=== PATIENT | female | born 1975 | race Caucasian/White ===

== ENCOUNTER 2018-12-02 22:40 | Emergency (ER) | payer BC ==
[2018-12-02] MEDS ORDERED: Sodium Chloride 0.9% 1,000 ML IV ONE (22:56)
[2018-12-02] MEDS ORDERED: fentaNYL 100 MCG/2 ML SDV IVPUSH ONE (23:22)
[2018-12-02] MEDS ORDERED: Ondansetron 4 MG/2 ML SDV IV ONE (23:24)
[2018-12-02] MEDS ORDERED: Iopamidol 612 MG/ML 100 ML Bottle IVPUSH ONE (23:29)
[2018-12-02 23:36] LABS: CHLORIDE,CL 101 mmol/L (101-111); SODIUM,NA 141 mmol/L (135-145)
--- NOTE | 2018-12-02 23:40 | EDM.PDOC ---
"ED HPI GENERAL MEDICAL PROBLEM - General Chief Complaint: Abdominal Pain Stated Complaint: PAIN IN STOMACH Time Seen by Provider: 12/02/18 22:45 Source of Information: Reports: Patient History Limitations: Reports: No Limitations - History of Present Illness INITIAL COMMENTS - FREE TEXT/NARRATIVE: mid abdominal pain 1100 radiating to RLQ tonight 8/10 no nausea or vomiting. Chills no fever, Last BM 5pm. Last ate 6pm. Upper Abdomen Pain Score (Numeric/FACES): 8 - Related Data Allergies Allergy/AdvReac Type Severity Reaction Status Date / Time bupropion [From Wellbutrin] Allergy Hives Verified 12/02/18 23:17 meperidine [From Demerol] Allergy Nausea and Verified 12/02/18 23:25 Vomiting Home Meds: Home Meds Ibuprofen 200 mg PO Q6HR PRN 08/16/18 [History] Lactobacillus Acidophilus [Probiotic] 1 cap PO DAILY 08/16/18 [History] Metoprolol Tartrate [Lopressor] 50 mg PO BID 08/16/18 [History] Multivitamin [Multi-Vitamin Daily] 1 tab PO DAILY 08/16/18 [History] Potassium Chloride 10 meq PO TID 08/16/18 [History] Rosuvastatin [Crestor] 5 mg PO ASDIRECTED 08/16/18 [History] amLODIPine Besylate [Amlodipine Besylate] 5 mg PO DAILY 08/16/18 [History] hydroCHLOROthiazide [Hydrochlorothiazide] 25 mg PO DAILY 08/16/18 [History] Past Medical History Cardiovascular History: Reports: Hypertension 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 ED EXAM, GI/ABD - Physical Exam Exam: See Below Exam Limited By: No Limitations General Appearance: Alert, Mild Distress Eyes: Bilateral: EOMI Ears: Normal External Exam Nose: Normal Inspection Throat/Mouth: Normal Inspection Head: Atraumatic, Normocephalic Neck: Normal Inspection Respiratory/Chest: No Respiratory Distress, Lungs Clear, Normal Breath Sounds Cardiovascular: Normal Peripheral Pulses, Regular Rate, Rhythm GI/Abdominal Exam: Normal Bowel Sounds, Soft, Guarding, Tender (RLQ). No: Distended, Rigid, Rebound (Female) Exam: Deferred Back Exam: Full Range of Motion Extremities: Normal Range of Motion Neurological: Alert, Oriented, Normal Cognition Psychiatric: Normal Affect Skin Exam: Warm, Dry, Normal Color Course - Vital Signs Last Recorded V/S: Last Vital Signs Temp 97.7 F 12/03/18 00:31 Pulse 72 12/03/18 00:31 Resp 18 12/03/18 00:31 BP 113/78 12/03/18 00:31 Pulse Ox 97 12/03/18 00:31 - Orders/Labs/Meds Labs: Laboratory Tests 12/02/18 12/02/18 12/02/18 Range/Units 22:53 22:53 22:53 WBC (5.0-10.0) 10^3/uL RBC (4.2-5.4) 10^6/uL Hgb (12.0-16.0) g/dL Hct (37.0-47.0) % MCV (80-100) fL MCH (27.0-34.0) pg MCHC (33.0-35.0) g/dL Plt Count (150-450) 10^3/uL Neut % (Auto) (42.2-75.2) % Lymph % (Auto) (20.5-50.1) % [place] % (Auto) (2-8) % Eos % (Auto) (1.0-3.0) % Baso % (Auto) (0.0-1.0) % Sodium (135-145) mmol/L Potassium (3.6-5.0) mmol/L Chloride (101-111) mmol/L Carbon Dioxide (21.0-31.0) mmol/L Anion Gap BUN (7-18) mg/dL Creatinine (0.6-1.3) mg/dL Est Cr Clr Drug Dosing mL/min Estimated GFR (MDRD) BUN/Creatinine Ratio Glucose (74-105) mg/dL Lactic Acid (0.5-2.2) mmol/L Calcium (8.4-10.2) mg/dl Total Bilirubin (0.2-1.0) mg/dL AST (10-42) IU/L ALT (10-60) IU/L Alkaline Phosphatase (42-121) IU/L Total Protein (6.7-8.2) g/dl Albumin (3.2-5.5) g/dl Globulin Albumin/Globulin Ratio Urine Color Yellow (YELLOW) Urine Appearance Slightly cloudy (CLEAR) Urine pH 6.0 (5.0-9.0) Ur Specific [place] 1.010 (1.005-1.030) Urine Protein Negative (NEGATIVE) Urine Glucose (UA) Negative (NEGATIVE) Urine Ketones 15 H (NEGATIVE) Urine Occult Blood Small H (NEGATIVE) Urine Nitrite Negative (NEGATIVE) Urine Bilirubin Negative (NEGATIVE) Urine Urobilinogen 0.2 (0.2-1.0) mg/dL Ur Leukocyte Esterase Negative (NEGATIVE) Urine RBC 0-5 /HPF Urine WBC 0-5 (0-5/HPF) /HPF Ur Epithelial Cells Moderate H (NOT SEEN) /HPF Urine Bacteria Moderate H (0-FEW/HPF) /HPF Urine HCG, Qual Negative Urine Opiates Screen Negative (NEGATIVE) Ur Oxycodone Screen Negative (NEGATIVE) Urine Methadone Screen Negative (NEGATIVE) Ur Barbiturates Screen Negative (NEGATIVE) U Tricyclic Antidepress Negative (NEGATIVE) Ur Phencyclidine Scrn Negative (NEGATIVE) Ur Amphetamine Screen Negative (NEGATIVE) U Methamphetamines Scrn Negative (NEGATIVE) Urine MDMA Screen Negative (NEGATIVE) U Benzodiazepines Scrn Negative (NEGATIVE) Urine Cocaine Screen Negative (NEGATIVE) U Marijuana (THC) Screen Negative (NEGATIVE) Ethyl Alcohol mg/dL 12/02/18 12/02/18 12/02/18 Range/Units 23:10 23:10 23:10 WBC 14.4 H (5.0-10.0) 10^3/uL RBC 4.23 (4.2-5.4) 10^6/uL Hgb 13.4 (12.0-16.0) g/dL Hct 40.9 (37.0-47.0) % MCV 96.7 (80-100) fL MCH 31.7 (27.0-34.0) pg MCHC 32.8 L (33.0-35.0) g/dL Plt Count 295 (150-450) 10^3/uL Neut % (Auto) 72.7 (42.2-75.2) % Lymph % (Auto) 19.0 L (20.5-50.1) % [place] % (Auto) 5.9 (2-8) % Eos % (Auto) 2.2 (1.0-3.0) % Baso % (Auto) 0.2 (0.0-1.0) % Sodium 141 (135-145) mmol/L Potassium 3.0 L (3.6-5.0) mmol/L Chloride 101 (101-111) mmol/L Carbon Dioxide 25.0 (21.0-31.0) mmol/L Anion Gap 18.0 BUN 11 (7-18) mg/dL Creatinine 0.7 (0.6-1.3) mg/dL Est Cr Clr Drug Dosing 96.01 mL/min Estimated GFR (MDRD) > 60 BUN/Creatinine Ratio 15.71 Glucose 83 (74-105) mg/dL Lactic Acid 2.2 (0.5-2.2) mmol/L Calcium 9.0 (8.4-10.2) mg/dl Total Bilirubin 0.6 (0.2-1.0) mg/dL AST 37 (10-42) IU/L ALT 63 H (10-60) IU/L Alkaline Phosphatase 64 (42-121) IU/L Total Protein 7.5 (6.7-8.2) g/dl Albumin 4.2 (3.2-5.5) g/dl Globulin 3.3 Albumin/Globulin Ratio 1.27 Urine Color (YELLOW) Urine Appearance (CLEAR) Urine pH (5.0-9.0) Ur Specific [place] (1.005-1.030) Urine Protein (NEGATIVE) Urine Glucose (UA) (NEGATIVE) Urine Ketones (NEGATIVE) Urine Occult Blood (NEGATIVE) Urine Nitrite (NEGATIVE) Urine Bilirubin (NEGATIVE) Urine Urobilinogen (0.2-1.0) mg/dL Ur Leukocyte Esterase (NEGATIVE) Urine RBC /HPF Urine WBC (0-5/HPF) /HPF Ur Epithelial Cells (NOT SEEN) /HPF Urine Bacteria (0-FEW/HPF) /HPF Urine HCG, Qual Urine Opiates Screen (NEGATIVE) Ur Oxycodone Screen (NEGATIVE) Urine Methadone Screen (NEGATIVE) Ur Barbiturates Screen (NEGATIVE) U Tricyclic Antidepress (NEGATIVE) Ur Phencyclidine Scrn (NEGATIVE) Ur Amphetamine Screen (NEGATIVE) U Methamphetamines Scrn (NEGATIVE) Urine MDMA Screen (NEGATIVE) U Benzodiazepines Scrn (NEGATIVE) Urine Cocaine Screen (NEGATIVE) U Marijuana (THC) Screen (NEGATIVE) Ethyl Alcohol 101 mg/dL Meds: Medications Discontinued Medications Generic Name Dose Route Start Last Admin Trade Name Gilberto PRN Reason Stop Dose Admin Fentanyl 50 mcg 12/02/18 23:22 12/02/18 23:33 Sublimaze IVPUSH 12/02/18 23:23 50 mcg ONETIME ONE Administration Sodium Chloride 1,000 mls @ 999 mls/hr 12/02/18 22:56 12/02/18 23:16 Normal Saline IV 12/02/18 23:56 999 mls/hr .BOLUS ONE Administration Potassium Chloride 10 meq/ 100 mls @ 100 mls/hr 12/02/18 23:42 12/03/18 01:19 Premix IV 12/03/18 00:41 100 mls/hr ONETIME ONE Administration Sodium Chloride 1,000 mls @ 100 mls/hr 12/03/18 01:17 12/03/18 01:19 Normal Saline IV 12/03/18 11:16 100 mls/hr .BOLUS ONE Administration Iopamidol 100 ml 12/02/18 23:29 12/03/18 00:10 Isovue-300 (61%) IVPUSH 12/02/18 23:30 98 ml ONETIME ONE Administration Ondansetron HCl 4 mg 12/02/18 23:24 12/02/18 23:31 Zofran IV 12/02/18 23:25 4 mg ONETIME ONE Administration - Radiology Interpretation Free Text/Narrative:: [facility] Final Radiology Report with Addendum Call: [phone] assistance Online chat: [email or web address] Name: ACOSTA SCHILLING Age: 43Years F Date: 12/02/2018 SSN: -- : [id number] Study: CT ABDOMEN/PELVIS W Requesting Physician: SHAYNE URIAS Images: [id number] Addl Studies: Provided Clinical History: Contrast: With Contrast Medium: Iso 300 Contrast Amount: 98 mL Contrast Method: Lac 20g Page 1 of 2 Addendum created by Vikas John MD on 12/03/2018 1:01 AM Central Time ([place] & [place]) The impression should read the appendix measures up to 8 mm Initial Report created on 12/03/2018 1:00 AM Central Time ([place] & [place]) EXAM: CT Abdomen and Pelvis With Contrast EXAM DATE/TIME: 12/02/2018 11:52 PM CLINICAL HISTORY: 43 years old, female; Abdominal pain; Localized; Right lower quadrant (rlq); Patient HX: Wbc 14,0000, HX of kidney stones TECHNIQUE: Imaging protocol: Axial computed tomography images of the abdomen and pelvis with intravenous contrast. Coronal and sagittal reformatted images were created and reviewed. Radiation optimization: All CT scans at this facility use at least one of these dose optimization techniques: automated exposure control; mA and/or kV adjustment per patient size (includes targeted exams where dose is matched to clinical indication); or iterative reconstruction. Contrast material: ISO 300; Contrast volume: 98 ml; Contrast route: LAC 20G; COMPARISON: CT Abdomen Pelvis wo Cont 11/26/2015 11:35 AM FINDINGS: ABDOMEN: TONIE, ACOSTA | Final Radiology Report CONFIDENTIALITY STATEMENT This report is intended only for use by the referring physician, and only in accordance with law. If you received this in error, call [phone]. Page 2 of 2 Liver: Normal. No mass. Gallbladder and bile ducts: Normal. No calcified stones. No ductal dilation. Pancreas: Normal. No ductal dilation. Spleen: Normal. No splenomegaly. Adrenals: Normal. No mass. Kidneys and ureters: Normal. No hydronephrosis. Stomach and bowel: Normal. No obstruction. No mucosal thickening. Appendix: The appendix demonstrates diffuse distention, measuring up to, consistent with moderate acute appendicitis. There is moderate periappendiceal inflammatory change. PELVIS: Bladder: Unremarkable as visualized. Reproductive: Unremarkable as visualized. ABDOMEN and PELVIS: Intraperitoneal space: Normal. No free air. No significant fluid collection. Bones/joints: No acute fracture. No dislocation. Soft tissues: Unremarkable. Vasculature: Normal. No abdominal aortic aneurysm. Lymph nodes: Normal. No enlarged lymph nodes. IMPRESSION: The appendix demonstrates diffuse distention, measuring up to, consistent with moderate acute appendicitis. There is moderate periappendiceal inflammatory change. Thank you for allowing us to participate in the care of your patient. - Re-Assessments/Exams Free Text/Narrative Re-Assessment/Exam: 12/03/18 01:15 CT confirm acute appendicitis. Dr Mireya Rubi accepting of patient. Transfer via [facility]. Departure - Departure Time of Disposition: 01:45 Disposition: DC/Tfer to Acute Hospital 02 Condition: Good Clinical Impression: Appendicitis Qualifiers: Appendicitis type: acute appendicitis Acute appendicitis type: unspecified acute appendicitis type Qualified Code(s): K35.80 - Unspecified acute appendicitis - Discharge Information *PRESCRIPTION DRUG MONITORING PROGRAM REVIEWED*: No *COPY OF PRESCRIPTION DRUG MONITORING REPORT IN PATIENT CHRISTIANO: No Referrals: PCP,Unobtain [Primary Care Provider] - Forms: ED Department Discharge"
[2018-12-02] MEDS ORDERED: Potassium Chloride 10 MEQ in Premix Bag 1 BAG IV ONE (23:42)
[2018-12-03] MEDS ORDERED: Sodium Chloride 0.9% 1,000 ML IV ONE (01:17)
== END 2018-12-03 01:48 ==
LOC: DL.ED 22:40
DX: K35.80 Unspecified acute appendicitis (principal); I10 Essential (primary) hypertension; Z88.8 Allergy status to other drugs, medicaments and biological substances; Z79.899 Other long term (current) drug therapy
CPT/HCPCS: 36415; 74177; 80053; 80305; 81001; 81025; 83605; 85025; 96361; 96365; 96375; 99285; A4217; G0480; J2405; J3010; J3480; J7030; Q9967

== ENCOUNTER 2019-05-19 14:23 | Emergency (ER) | payer OTHER, BC ==
--- NOTE | 2019-05-19 14:49 | EDM.PDOC ---
ED HPI GENERAL MEDICAL PROBLEM - General Chief Complaint: Bite:Animal, Insect Stated Complaint: DOG BITE RT CALF Time Seen by Provider: 05/19/19 14:42 Source of Information: Reports: Patient, Old Records, RN, RN Notes Reviewed History Limitations: Reports: No Limitations - History of Present Illness INITIAL COMMENTS - FREE TEXT/NARRATIVE: Pt presents to ER with c/o dog bite to Rt calf that occurred [place] [employer] [place] [employer] today. Pt states the dog was a stray. [employer] was notified. The bite did not break through her pant leg, but she does have 3 small abrasions from the bite. She believes her Tetanus Vaccine was updated last year when she had appendicitis. She denies any other injury. Onset: Today Onset Date: 05/19/19 Onset Time: 14:00 Duration: Constant Location: Reports: Lower Extremity, Right Quality: Reports: Ache Severity: Mild Improves with: Reports: None Worsens with: Reports: None Associated Symptoms: Reports: No Other Symptoms Left Lower Leg Pain Score (Numeric/FACES): 2 - Related Data Allergies Allergy/AdvReac Type Severity Reaction Status Date / Time bupropion [From Wellbutrin] Allergy Hives Verified 12/02/18 23:17 meperidine [From Demerol] Allergy Nausea and Verified 12/02/18 23:25 Vomiting Home Meds: Home Meds Ibuprofen 200 mg PO Q6HR PRN 08/16/18 [History] Lactobacillus Acidophilus [Probiotic] 1 cap PO DAILY 08/16/18 [History] Metoprolol Tartrate [Lopressor] 50 mg PO BID 08/16/18 [History] Multivitamin [Multi-Vitamin Daily] 1 tab PO DAILY 08/16/18 [History] Potassium Chloride 10 meq PO TID 08/16/18 [History] Rosuvastatin [Crestor] 5 mg PO ASDIRECTED 08/16/18 [History] amLODIPine Besylate [Amlodipine Besylate] 5 mg PO DAILY 08/16/18 [History] hydroCHLOROthiazide [Hydrochlorothiazide] 25 mg PO DAILY 08/16/18 [History] Past Medical History Cardiovascular History: Reports: Hypertension 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 ED EXAM, ANIMAL BITE - Physical Exam Exam: See Below Exam Limited By: No Limitations General Appearance: Alert, WD/WN, No Apparent Distress, Obese Nose: Normal Inspection Throat/Mouth: Normal Voice Head: Atraumatic, Normocephalic Neck: Normal Inspection Respiratory/Chest: No Respiratory Distress Cardiovascular: Normal Peripheral Pulses Extremities: Normal Range of Motion, No Pedal Edema, Normal Capillary Refill, Other (3 superficial abrasions to Rt calf, no tear, puncture or disruption of the pant leg.) Neurological: Alert, Oriented, No Motor/Sensory Deficits Psychiatric: Normal Mood Skin Exam: Warm/Dry, DRY, I, Normal Color, NR Course - Vital Signs Last Recorded V/S: Last Vital Signs Temp 97.3 F 05/19/19 14:26 Pulse 102 H 05/19/19 14:26 Resp 18 05/19/19 14:26 BP 179/99 H 05/19/19 14:26 Pulse Ox 98 05/19/19 14:26 - Re-Assessments/Exams Free Text/Narrative Re-Assessment/Exam: 05/19/19 15:01 Pant leg material not punctured or torn. The injury is superficial contusion/ abrasion without puncture. I do not think she needs rabies vaccine or immunoglobin in this case. Departure - Departure Time of Disposition: 14:50 Disposition: Home, Self-Care 01 Condition: Good Clinical Impression: Dog bite of right lower leg Qualifiers: Encounter type: initial encounter Qualified Code(s): S81.851A - Open bite, right lower leg, initial encounter - Discharge Information *PRESCRIPTION DRUG MONITORING PROGRAM REVIEWED*: No *COPY OF PRESCRIPTION DRUG MONITORING REPORT IN PATIENT CHRISTIANO: No Instructions: Animal Bite, Adult Forms: ED Department Discharge Additional Instructions: Rx: Augmentin 875mg Rx: Bactroban Ointment 2% Contact the animal doctor to see that the dog was caught for observation for rabies. Contact your primary doctor's office to confirm your last Tetanus Vaccine was within the past 10 years.
== END 2019-05-19 15:02 | disposition home or self-care (01) ==
LOC: DL.ED 14:23
DX: S81.851A Open bite, right lower leg, initial encounter (principal); I10 Essential (primary) hypertension; E66.9 Obesity, unspecified; Z88.8 Allergy status to other drugs, medicaments and biological substances; Z88.5 Allergy status to narcotic agent; Z79.899 Other long term (current) drug therapy; Z68.38 Body mass index [BMI] 38.0-38.9, adult; W54.0XXA Bitten by dog, initial encounter
CPT/HCPCS: 99283

== ENCOUNTER 2020-05-02 15:59 | Emergency (ER) | payer BC, OTHER ==
[2020-05-02] MEDS ORDERED: Sodium Chloride 0.9% 10 ML Syringe FLUSH PRN (16:30)
[2020-05-02] MEDS ORDERED: Dexamethasone 4 MG/ML SDV IVPUSH ONE (16:30)
[2020-05-02 16:50] LABS: ANION GAP 14.9 mEq/L (7-13); CHLORIDE,CL 97 mmol/L (98-107); SODIUM,NA 137 mmol/L (136-145)
--- NOTE | 2020-05-02 16:58 | CR ---
PROCEDURE INFORMATION: Exam: XR Chest, 1 View Exam date and time: 05/02/2020 4:50 PM Age: 45 years old Clinical indication: Other: Covid; Additional info: Shortness of breath TECHNIQUE: Imaging protocol: XR of the chest Views: 1 view. COMPARISON: No relevant prior studies available. FINDINGS: Lungs: Shallow inspiration. Focal peripheral opacity in right upper lung laterally could be due to a focal infiltrate or atelectasis. Shallow inspiration. Pleural space: Unremarkable. No pleural effusion. No pneumothorax. Heart/Mediastinum: Unremarkable. No cardiomegaly. Bones/joints: Unremarkable. IMPRESSION: 1. Shallow inspiration with focal opacity in the right mid lung laterally that could be atelectasis or infiltrate.
[2020-05-02 17:02] LABS: PTT,PARTIAL THROMBOPLSTIN TIME 27.2 SEC (22.0-34.0)
--- NOTE | 2020-05-02 17:38 | EDM.PDOC ---
Scribed by Joselin Beckett 05/02/20 1738 for Carmelita Maurer MD ED HPI GENERAL MEDICAL PROBLEM - General Chief Complaint: Respiratory Problem Stated Complaint: covid+ Time Seen by Provider: 05/02/20 16:21 Source of Information: Reports: Patient, RN, RN Notes Reviewed History Limitations: Reports: No Limitations - History of Present Illness INITIAL COMMENTS - FREE TEXT/NARRATIVE: Patient presents to ED stating that she is positive for COVID on April 23. Her symptoms started 2 to 3 days prior to that. She was due out of 10 day quarantine today or tomorrow. Over the last 2 days she noted that the cough is getting more severe. She is getting more short of breath especially with exertion as well as chest pain. She has not had fevers for the last 2 days. No radiation of symptoms to arm or jaw. No nausea or vomiting. On arrival to the ED she was satting in the high 80s on room air. She was placed on nasal cannula 2 liters and her sats came up to 94%. Onset: Gradual Duration: Getting Worse Location: Reports: Chest Quality: Reports: Ache Severity: Severe Improves with: Reports: None Worsens with: Reports: None Associated Symptoms: Reports: No Other Symptoms - Related Data Allergies Allergy/AdvReac Type Severity Reaction Status Date / Time bupropion [From Wellbutrin] Allergy Hives Verified 05/02/20 16:29 meperidine [From Demerol] Allergy Nausea and Verified 05/02/20 16:29 Vomiting Home Meds: Home Meds Ibuprofen 200 mg PO Q6HR PRN 08/16/18 [History] Lactobacillus Acidophilus [Probiotic] 1 cap PO DAILY 08/16/18 [History] Metoprolol Tartrate [Lopressor] 50 mg PO BID 08/16/18 [History] Multivitamin [Multi-Vitamin Daily] 1 tab PO DAILY 08/16/18 [History] Potassium Chloride 10 meq PO TID 08/16/18 [History] Rosuvastatin [Crestor] 5 mg PO ASDIRECTED 08/16/18 [History] amLODIPine Besylate [Amlodipine Besylate] 5 mg PO DAILY 08/16/18 [History] hydroCHLOROthiazide [Hydrochlorothiazide] 25 mg PO DAILY 08/16/18 [History] Past Medical History Cardiovascular History: Reports: Hypertension [employer] History: Reports: Polycystic Ovaries Endocrine/Metabolic History: Reports: Obesity/BMI 30+ - Past Surgical History GI Surgical History: Reports: Appendectomy Social & Family History - Family History Family Medical History: No Pertinent Family History - Caffeine Use Caffeine Use: Reports: None - Living Situation & Occupation Occupation: Employed ED ROS GENERAL - Review of Systems Review Of Systems: Comprehensive ROS is negative, except as noted in HPI. ED EXAM, GENERAL - Physical Exam Exam: See Below Exam Limited By: No Limitations General Appearance: Alert, WD/WN, No Apparent Distress Eye Exam: Bilateral Eye: EOMI, Normal Inspection, PERRL Ears: Normal External Exam, Normal Canal, Hearing Grossly Normal, Normal TMs Nose: Normal Inspection, Normal Mucosa, No Blood Throat/Mouth: Normal Inspection, Normal Lips, Normal Teeth, Normal Gums, Normal Oropharynx, Normal Voice, No Airway Compromise Head: Atraumatic, Normocephalic Neck: Normal Inspection, Supple, Non-Tender, Full Range of Motion Respiratory/Chest: No Accessory Muscle Use, Other (breath sounds diminished). No: Rales, Wheezing Cardiovascular: Normal Peripheral Pulses, Regular Rate, Rhythm, No Edema, No Gallop, No JVD, No Murmur, No Rub GI/Abdominal: Normal Bowel Sounds, Soft, Non-Tender, No Organomegaly, No Distention, No Abnormal Bruit, No Mass (Female) Exam: Deferred Rectal (Female) Exam: Deferred Back Exam: Normal Inspection, Full Range of Motion, NT Extremities: Normal Inspection, Normal Range of Motion, Non-Tender, Normal Capillary Refill, No Pedal Edema Neurological: Alert, Oriented, CN II-XII Intact, Normal Cognition, Normal Gait, Normal Reflexes, No Motor/Sensory Deficits Psychiatric: Normal Affect, Normal Mood Skin Exam: Warm, Dry, Intact, Normal Color, No Rash Lymphatic: No Adenopathy Course - Vital Signs Last Recorded V/S: Last Vital Signs Temp 97.3 F 05/02/20 16:30 Pulse 130 H 05/02/20 16:30 Resp 28 H 05/02/20 16:30 BP 126/86 05/02/20 16:30 Pulse Ox 89 L 05/02/20 16:30 - Orders/Labs/Meds Orders: Active Orders 24 hr Category Date Time Status Peripheral IV Care [RC] . DIRECTED Care 05/02/20 16:31 Ordered Sodium Chloride 0.9% [Saline Flush] Med 05/02/20 16:30 Ordered 10 ml FLUSH ASDIRECTED PRN Peripheral IV Insertion Adult [OM.PC] Stat Oth 05/02/20 16:30 Ordered Medication Orders Sodium Chloride (Saline Flush) 10 ml FLUSH ASDIRECTED PRN PRN Reason: Keep Vein Open Last Admin: 05/02/20 16:45 Dose: 10 ml Documented by: GRAEME Labs: Laboratory Tests 05/02/20 05/02/20 05/02/20 Range/Units 16:19 16:19 16:19 WBC 5.5 (5.0-10.0) 10^3/uL RBC 5.03 (4.2-5.4) 10^6/uL Hgb 15.8 D (12.0-16.0) g/dL Hct 46.5 (37.0-47.0) % MCV 92.4 D (80-100) fL MCH 31.4 (27.0-34.0) pg MCHC 34.0 (33.0-35.0) g/dL Plt Count 307 (150-450) 10^3/uL Neut % (Auto) 57.2 (42.2-75.2) % Lymph % (Auto) 29.4 (20.5-50.1) % [place] % (Auto) 12.8 H (2-8) % Eos % (Auto) 0.4 L (1.0-3.0) % Baso % (Auto) 0.2 (0.0-1.0) % Add Manual Diff Yes Neutrophils % (Manual) 56 (42-75) % Lymphocytes % (Manual) 33 (20-50) % Monocytes % (Manual) 10 H (2-8) % Eosinophils % (Manual) 1 (1-3) % PT 10.4 (9.0-12.0) SEC INR 1.1 (0.9-1.2) APTT 27.2 (22.0-34.0) SEC D-Dimer, Quantitative 956 H (0-400) ng/mL Sodium 137 (136-145) mmol/L Potassium 2.9 L (3.5-5.1) mmol/L Chloride 97 L (98-107) mmol/L Carbon Dioxide 28 (21-32) mmol/L Anion Gap 14.9 H (7-13) mEq/L BUN 8 (7-18) mg/dL Creatinine 0.71 (0.55-1.02) mg/dL Est Cr Clr Drug Dosing TNP Estimated GFR (MDRD) > 60 BUN/Creatinine Ratio 11.3 (No establ ref range) Glucose 113 H (74-99) mg/dL Calcium 8.6 (8.5-10.1) mg/dL Total Bilirubin 0.7 (0.2-1.0) mg/dL AST 50 H (15-37) U/L ALT 57 (14-59) U/L Alkaline Phosphatase 78 (46-116) U/L Troponin I < 0.017 (0.000-0.056) ng/mL C-Reactive Protein 4.4 H (0.0-0.9) mg/dL Total Protein 7.9 (6.4-8.2) g/dL Albumin 3.2 L (3.4-5.0) g/dL Globulin 4.7 Albumin/Globulin Ratio 0.68 Meds: Medications Generic Name Dose Route Start Last Admin Trade Name Freq PRN Reason Stop Dose Admin Sodium Chloride 10 ml 05/02/20 16:30 05/02/20 16:45 Saline Flush FLUSH 10 ml ASDIRECTED PRN Administration Keep Vein Open Discontinued Medications Generic Name Dose Route Start Last Admin Trade Name Freq PRN Reason Stop Dose Admin Dexamethasone 6 mg 05/02/20 16:30 05/02/20 16:45 Decadron IVPUSH 05/02/20 16:31 6 mg ONETIME ONE Administration - Re-Assessments/Exams Free Text/Narrative Re-Assessment/Exam: Patient was weaned off oxygen after getting the dexamethasone IV and reports feeling a little better. Discussed elevated d-dimer and recommendations for anticoagulation with the patient. No contraindications to starting anticoag ulation was identified and patient desires treatment. 05/02/20 17:33 Departure - Departure Time of Disposition: 17:34 Disposition: Home, Self-Care 01 Condition: Good Clinical Impression: COVID-19 - Discharge Information Instructions: COVID-19: How to Protect Yourself and Others - CDC, Prevent the Spread of COVID-19 if You Are Sick - [facility] Forms: ED Department Discharge Additional Instructions: Xarelto for 1 month given elevated d-dimer from COVID Dexamethasone daily for 9 more days Call/return to the ER if symptoms worsen Follow up with primary care provider in 5-7 days Sepsis Event Note (ED) - Focused Exam Vital Signs: Vital Signs Temp Pulse Resp BP Pulse Ox 05/02/20 16:30 97.3 F 130 H 28 H 126/86 89 L - My Orders Last 24 Hours: My Active Orders 05/02/20 16:30 Sodium Chloride 0.9% [Saline Flush] 10 ml FLUSH ASDIRECTED PRN Peripheral IV Insertion Adult [OM.PC] Stat 05/02/20 16:31 Peripheral IV Care [RC] . DIRECTED - Assessment/Plan Last 24 Hours: My Active Orders 05/02/20 16:30 Sodium Chloride 0.9% [Saline Flush] 10 ml FLUSH ASDIRECTED PRN Peripheral IV Insertion Adult [OM.PC] Stat 05/02/20 16:31 Peripheral IV Care [RC] . DIRECTED I have read and agree with the documentation that has been completed regarding this visit. By signing this record, I attest that the documentation was completed in my physical presence and is an accurate record of the encounter.
== END 2020-05-02 17:50 | disposition home or self-care (01) ==
LOC: DL.ED 15:59
DX: U07.1 COVID-19 (principal); I10 Essential (primary) hypertension; E66.9 Obesity, unspecified; Z79.899 Other long term (current) drug therapy; Z88.8 Allergy status to other drugs, medicaments and biological substances; Z88.5 Allergy status to narcotic agent
CPT/HCPCS: 36415; 71045; 80053; 84484; 85025; 85379; 85610; 85730; 86140; 96374; 99283; 99285; J1100

== ENCOUNTER 2024-09-22 06:03 | Day surgery (SDC) | payer BC ==
[~2024-09-22 06:03] MED LIST: Midazolam 1 MG/ML 2 ML SDV IV ONE; Midazolam 1 MG/ML 2 ML SDV ONE; fentaNYL 100 MCG/2 ML SDV IV ONE; fentaNYL 100 MCG/2 ML SDV ONE
[2024-09-22] MEDS: Dextrose 5%-0.45% NaCl 1,000 ML IV SCH (06:39)
[2024-09-22] MEDS: fentaNYL 100 MCG/2 ML SDV IV ONE ×2 (07:09)
[2024-09-22] MEDS: Midazolam 1 MG/ML 2 ML SDV IV ONE ×2 (07:10)
== END 2024-09-22 08:40 | disposition home or self-care (01) ==
LOC: DL.ENDO 06:03
PROVIDERS: ATTEND Internal Medicine Gastroenterology
DX: K29.50 Unspecified chronic gastritis without bleeding (principal)
CPT/HCPCS: J2250; J3010

== ENCOUNTER 2024-09-23 06:05 | Day surgery (SDC) | payer BC ==
[2024-09-23] MEDS ORDERED: Midazolam 1 MG/ML 2 ML SDV ONE (06:10)
[2024-09-23] MEDS ORDERED: fentaNYL 100 MCG/2 ML SDV ONE (06:11)
[2024-09-23] MEDS ORDERED: Midazolam 1 MG/ML 2 ML SDV IV ONE (06:11)
[2024-09-23] MEDS ORDERED: fentaNYL 100 MCG/2 ML SDV IV ONE (06:11)
[2024-09-23] MEDS: Dextrose 5%-0.45% NaCl 1,000 ML IV SCH (06:27)
[2024-09-23] MEDS: fentaNYL 100 MCG/2 ML SDV IV ONE ×6 (06:30→06:43)
[2024-09-23] MEDS: Midazolam 1 MG/ML 2 ML SDV IV ONE ×8 (06:32→06:47)
== END 2024-09-23 08:15 | disposition home or self-care (01) ==
LOC: DL.ENDO 06:05
PROVIDERS: ATTEND Internal Medicine Gastroenterology
DX: Z12.11 Encounter for screening for malignant neoplasm of colon (principal)
CPT/HCPCS: J2250; J3010